=== PATIENT | male | born 1970 | race Caucasian/White ===

== ENCOUNTER 2016-06-09 17:17 | Emergency (ER) | payer MEDICAID ==
[~2016-06-09] VITALS: Ht 177.8 cm; Wt 104.3 kg
[2016-06-09] MEDS ORDERED: NKM (17:33)
[2016-06-09] MEDS ORDERED: Bacitracin Oint UD TOPIC ONE ×2 (17:43→18:00)
--- NOTE | 2016-06-09 17:47 | Emergency Room Report ---
History of Present Illness General Chief Complaint: Skin Rash/Abscess Source: Patient Present Illness HPI 45-year-old male presents emergency department complaining of pain, erythema, open lesion to the right lateral calf x3 weeks. Patient states he believes he has a bacterial infection and is worried about MRSA. Patient denies fevers he reports subjective chills. Patient states that every morning he attempts to clean the wound and the scab easily is scrubbed off. Patient reports pus coming from the lesion. Patient denies itching. Patient denies history of immunocompromise he denies taking medications. He denies streaking of erythema up the leg or palpable tender lymph nodes. pt states he is UTD with tetanus. Denies CP, Palpitations, LOC, AMS, dizziness, Changes in Vision, Sensation, paresthesias, or a sudden severe headache. Allergies: Coded Allergies: No Known Allergies (Unverified , 06/09/16) Patient History Past Medical History: see triage record Past Surgical History: none Pertinent Family History: none Immunizations: UTD Reviewed Nursing Documentation: PMH: Agreed, PSxH: Agreed Nursing Documentation-PMH Past Medical History: No Stated History Review of Systems All Other Systems: negative except mentioned in HPI Physical Exam Vital Signs Date Time Temp Pulse Resp B/P Pulse Ox O2 Delivery O2 Flow Rate FiO2 06/09/16 17:29 97.9 92 16 130/84 98 Room Air Sp02 EP Interpretation: reviewed, normal General Appearance: no apparent distress, alert, GCS 15, non-toxic Head: normocephalic, atraumatic Eyes: bilateral eye PERRL, bilateral eye normal inspection ENT: hearing grossly normal, normal pharynx, no angioedema, normal voice Neck: full range of motion, supple/symm/no masses Respiratory: chest non-tender, lungs clear, normal breath sounds, speaking full sentences Cardiovascular #1: regular rate, rhythm, no edema Musculoskeletal: back normal, gait/station normal, normal range of motion, tender - ttp to lateral right calf about open lesion., no bony ttp, no obvious deformity, no evidence of vascular compromise. Neurologic: alert, oriented x3, responsive, motor strength/tone normal, sensory intact, speech normal Psychiatric: judgement/insight normal, memory normal, mood/affect normal, anxious Skin: normal color, no rash, warm/dry, well hydrated, other - mild cellulitis about open lesion on the right LE lesion is 1cm in diameter, scabbed, and there is mild surrounding erythema in a 2 cm span about the lesion. Lymphatic: no adenopathy Medical Decision Making PA Attestation Dr. Hui is my supervising Physician whom patient management has been discussed with. Diagnostic Impression: Primary Impression: Cellulitis and abscess of leg, except foot ER Course 45-year-old male presents emergency department complaining of pain, erythema, open lesion to the right lateral calf x3 weeks. Patient states he believes he has a bacterial infection and is worried about MRSA. Patient denies fevers he reports subjective chills. Patient states that every morning he attempts to clean the wound and the scab easily is scrubbed off. Patient reports pus coming from the lesion. Patient denies itching. Patient denies history of immunocompromise he denies taking medications. He denies streaking of erythema up the leg or palpable tender lymph nodes. Ddx considered but are not limited to cellulitis, abscess, necrotizing fasciitis , insect bite, fracture, d/L, gout Vital signs: are WNL, pt. is afebrile H&PE are most consistent with mild cellulitis about open lesion on the right LE lesion is 1cm in diameter, scabbed, and there is mild surrounding erythema in a 2 cm span about the lesion. ORDERS: none required at this time, the diagnosis is clinical ED INTERVENTIONS: - wound is cleaned -bacitracin and sterile dressing is applied by risk tech. DISCHARGE: At this time pt. is stable for d/c to home. Will provide printed patient care instructions, and any necessary prescriptions. Care plan and follow up instructions have been discussed with the patient prior to discharge. Last Vital Signs Date Time Temp Pulse Resp B/P Pulse Ox O2 Delivery O2 Flow Rate FiO2 06/09/16 17:29 97.9 92 16 130/84 98 Room Air Disposition: HOME, SELF-CARE Condition: Stable Scripts Bacitracin/Polymyxin B Sulfate (BACITRACIN-POLYMYXIN OINTMENT) 28.35 Gm Oint...g. 1 APPLIC TP BID, #28.3 GM Prov: Nara Laird 06/09/16 Trimethoprim/Sulfamethoxazole 160/800* (BACTRIM DS TABLET*) 1 Each Tablet 1 TAB ORAL TWICE A DAY for 7 Days, #14 TAB Prov: Nara Laird 06/09/16 Cephalexin* (KEFLEX*) 500 Mg Capsule 500 MG ORAL EVERY 12 HOURS for 7 Days, #14 CAP 0 Refills Prov: Nara Laird 06/09/16 Patient Instructions: Cellulitis Additional Instructions: Take medications as directed. Follow up with PCP in 3-5 days Return sooner to ED if new symptoms occur, or current symptoms become worse. *!* Review provided list of free or reduced cost health clinics for follow up * !* - Please note that this Emergency Department Report was dictated using [employer] d[employer] technology software, occasionally this can lead to erroneous entry secondary to interpretation by the dictation equipment. Nara Laird Jun 09, 2016 17:47
[2016-06-09] MEDS ORDERED: BACITRACIN-P28.35 GM TP (17:51)
[2016-06-09] MEDS ORDERED: CEPHALEXIN500 MG ORAL (17:51)
[2016-06-09] MEDS ORDERED: BACTRIM DS TAB1 EAC1 ORAL (17:51)
[2016-06-09 18:02] VITALS: BP 128/70
== END 2016-06-09 18:02 | disposition home or self-care (01) ==
LOC: EDSEX 17:17 → EMR 17:56
DX: L03.115 Cellulitis of right lower limb (principal); L02.415 Cutaneous abscess of right lower limb
CPT/HCPCS: 99284